=== PATIENT | male | born 1960 | race Caucasian/White ===

== ENCOUNTER 2022-05-30 13:59 | Emergency (ER) | payer BC, SELFPAY ==
--- NOTE | 2022-05-30 14:00 | ED.URI ---
HPI - URI/Sore Throat General Chief Complaint: Upper Respiratory Infection Stated Complaint: Sore Throat/Headache Time Seen by Provider: 05/30/22 14:00 Source: patient Mode of arrival: ambulatory Limitations: no limitations History of Present Illness HPI Narrative: Rajendra is a 62-year-old male patient presenting to the clinic today with complaints of feeling feverish, chills, body aches,sore throat, nasal congestion, and headache 3-4 day. He reports he has not been checking his temperature. States that he has been on a month long round of steroids for exacerbation of ulcerative colitis. MD elicited complaint: fever, cough, sore throat, rhinorrhea, nasal congestion and other ( Headache, body aches) Related Data Home Medications Medication Instructions Recorded Confirmed allopurinol 100 mg tablet 100 mg PO DIRECTED 05/30/22 05/30/22 azathioprine 50 mg tablet 50 mg PO DIRECTED 05/30/22 05/30/22 dicyclomine 20 mg tablet 20 mg PO DIRECTED 05/30/22 05/30/22 famotidine 20 mg tablet 20 mg PO DIRECTED 05/30/22 05/30/22 fenofibrate 160 mg tablet 160 mg PO DIRECTED 05/30/22 05/30/22 lisinopril 20 mg tablet 20 mg PO DIRECTED 05/30/22 05/30/22 mesalamine 1.2 gram tablet,delayed 1.2 g PO DIRECTED 05/30/22 05/30/22 release metoprolol succinate 100 mg 100 mg PO DIRECTED 05/30/22 05/30/22 tablet,extended release 24 hr prednisone 10 mg tablet 10 mg PO DIRECTED 05/30/22 05/30/22 Allergies Allergy/AdvReac Type Severity Reaction Status Date / Time No Known Allergies Allergy Verified 05/30/22 14:20 Review of Systems Review of Systems: Pertinent positives per HPI. Patient denies any fever, chills, rash, headache, visual changes, dizziness, cough, shortness of breath, chest pain, palpitations, nausea, vomiting, diarrhea, constipation, abdominal pain, or any urinary issues. PMFSH Comments At the time of my signature, I reviewed and agree with the nursing past medical, surgical, social, and family history. There is no relevant family history pertinent to the patient complaint. Exam Narrative: General: Well-developed, well nourished, in no apparent distress Head: Normocephalic, atraumatic Eyes: Pupils equally round and reactive to light bilaterally, EOM intact, sclera and conjunctive clear, no discharge, lids normal Ears: TMs intact and clear, ear canals clear, no drainage, grossly hearing normal. Nose: Nares patent, no discharge, no inflammation, no sinus tenderness. Mouth: Oral pharynx without lesions or masses, good dentition, MMM. Neck: Supple, trachea midline, no enlargement of anterior or posterior cervical nodes, no thyroid masses or goiter palpable. Cardio: Regular rate and rhythm, s1 and s2 normal, no murmur appreciated. Resp: Clear to auscultation bilaterally, no rhonchi, rales, wheezing or rubs Course Course Emergency Course: Portions of this record may have been created with voice recognition software. Level of Care: Express Care Visit Vital Signs Vital signs: Vital Signs Temperature 37.1 C 05/30/22 14:07 Pulse Rate 91 05/30/22 14:07 Respiratory Rate 20 05/30/22 14:07 Blood Pressure 123/67 05/30/22 14:07 Pulse Oximetry 96 05/30/22 14:07 Oxygen Delivery Room Air 05/30/22 14:07 Temperature 37.1 C 05/30/22 14:07 Pulse Rate 91 05/30/22 14:07 Respiratory Rate 20 05/30/22 14:07 Blood Pressure 123/67 05/30/22 14:07 Pulse Oximetry 96 05/30/22 14:07 Oxygen Delivery Room Air 05/30/22 14:07 Vital signs reviewed MDM - URI/Sore Throat MDM Narrative Medical decision making narrative: At the time of visit patient is resting comfortably on the exam table. COVID, flu, and strep culture was obtained and were negative in the clinic today. Strep culture was sent to the lab. Supportive measures were discussed with the patient he voiced understanding of discharge instructions and agrees to treatment plan. Differential Diagnosis Differential diag
[2022-05-30 14:07] VITALS: BP 123/67; PULSE 91; RESP 20; TEMP 37.1; O2SAT 96
== END 2022-05-30 14:50 | disposition home or self-care (01) ==
PROVIDERS: Emergency Provider Nurse Practitioner Family
DX: B34.9 Viral infection, unspecified (principal); J06.9 Acute upper respiratory infection, unspecified; J02.9 Acute pharyngitis, unspecified; Z20.822 Contact with and (suspected) exposure to COVID-19
CPT/HCPCS: 87081; 87426; 87804; 99213; C9803; G0463